=== PATIENT | female | born 1945 | race Caucasian/White ===

== ENCOUNTER → 2016-11-21 | Outpatient (CLI) | payer OTHER ==
[~2016-11-21] MED LIST: OXYC1TAB3 PO
--- NOTE | 2016-11-21 09:40 | DIAGNOSTIC IMAGING REPORT ---
LEFT ANKLE MIN 3 VIEWS CLINICAL HISTORY: Healing distal left fibular fracture. COMPARISON: Left ankle radiograph August 10, 2016 and October 10, 2016. FINDINGS: There has been progressive interval healing of the oblique distal left fibular fracture since prior exam. Fracture alignment is unchanged. There is no ankle mortise widening. No additional fractures are identified on this study. There is mild plantar calcaneal spurring. IMPRESSION: Progressive interval healing of the distal left fibular fracture. Fracture line is nearly imperceptible. Unchanged alignment. Electronically signed by: Inderjit Hernandez M.D. 11/21/2016 9:38 AM
== END | disposition home or self-care (01) ==
LOC: C.RDSM 08:58
PROVIDERS: ATTEND Physical Medicine & Rehabilitation Sports Medicine
DX: S82.62XD Displaced fracture of lateral malleolus of left fibula, subsequent encounter for closed fracture with routine healing (principal); X58.XXXD Exposure to other specified factors, subsequent encounter

== ENCOUNTER → 2017-02-19 | Outpatient (CLI) | payer OTHER ==
--- NOTE | 2017-02-19 09:15 | DIAGNOSTIC IMAGING REPORT ---
LEFT ANKLE MIN 3 VIEWS CLINICAL HISTORY: Left ankle pain. COMPARISON: Left ankle radiographs November 21, 2016 and August 06, 2016. FINDINGS: There is interval healing of the oblique distal left fibular fracture. The fracture healing appears complete. There is no ankle mortise widening. No acute fracture is identified on this exam. There is mild plantar calcaneal spurring. IMPRESSION: Interval healing of the distal left fibular fracture. Electronically signed by: Inderjit Hernandez M.D. 02/19/2017 9:14 AM Dictated Date/Time: 02/19/2017 9:13 AM
== END | disposition home or self-care (01) ==
LOC: C.RDSM 08:55
PROVIDERS: ATTEND Physician Assistant
DX: S82.492D Other fracture of shaft of left fibula, subsequent encounter for closed fracture with routine healing (principal); X58.XXXD Exposure to other specified factors, subsequent encounter

== ENCOUNTER → 2018-01-14 | Outpatient (CLI) | payer OTHER ==
--- NOTE | 2018-01-14 14:35 | DIAGNOSTIC IMAGING REPORT ---
LEFT WRIST 4 VIEWS HISTORY: PAIN IN L WRIST COMPARISON: None. FINDINGS: There is no fracture or dislocation. Soft tissues are unremarkable. The bones are osteopenic. Moderate osteoarthritis at the STT joint. Severe osteoarthritis at the first carpometacarpal joint with [id number] articulation. IMPRESSION: 1. No fracture or dislocation within the left wrist. 2. Degenerative changes as described above. Electronically signed by: Casper Espinoza M.D. 01/14/2018 2:34 PM Dictated Date/Time: 01/14/2018 2:31 PM
== END | disposition home or self-care (01) ==
LOC: C.RAD1850 14:17
PROVIDERS: ATTEND Family Medicine
DX: M25.532 Pain in left wrist (principal); M19.032 Primary osteoarthritis, left wrist; M18.12 Unilateral primary osteoarthritis of first carpometacarpal joint, left hand